=== PATIENT | male | born 1985 | race Caucasian/White ===

== ENCOUNTER 2018-05-29 09:07 | Inpatient (IN) ==
[2018-05-29] MEDS ORDERED: ZOFRAN 4 MG/2 ML IVP STA (09:28)
--- NOTE | 2018-05-29 09:28 | ED.PDOC ---
General ED Provider: Dr. BELLA BRUNSON Chief Complaint: Nausea/Vomiting Stated Complaint: States onset of symptoms last evening after eatting dinner downtown [place] at [facility]. States had a Steak, baked potatoe, Yesterday at noon Has [place] in [place]. Had Diarrhea initially with multiple episodes all night followed by onset of nausea and vomiting this morning. Called 911 [place] assistance at [facility]. Relatively asymptomatic upon arrival however had recurrent wretching and vomiting necessitating administering additional antiemetic. Time Seen by Physician: 09:12 Mode of Arrival: Walk-In Information Source: Patient Exam Limitations: No limitations Nursing and Triage Documentation Reviewed and Agree: Yes Does patient meet sepsis criteria?: No System Inflammatory Response Syndrome: Not Applicable Sepsis Protocol: For patient's 13 years and over: Temp is 96.8 and below OR 101 and greater Pulse >90 BPM Resp >20/minute Acutely Altered Mental Status Are patient's symptoms suggestive of a new infection, such as: -Pneumonia -Skin, Soft Tissue -Endocarditis -UTI -Bone, Joint Infection -Implantable Device -Acute Abdominal Infection -Wound Infection -Meningitis -Blood Stream Catheter Infection -Unknown GI Complaint Exam - Vomiting/Diarrhea Complaint/Exam Onset/Duration: 8 hours Symptoms Are: Still present Episodes of Vomiting over last 24 Hours: 4 Episodes of Diarrhea Over Last 24 Hours: 6 Initial Severity: Severe Current Severity: Severe Character of Vomiting: Reports: Bilious, Retching Character of Diarrhea: Reports: Watery Aggravating: Reports: Position, Movement Alleviating: Reports: None Associated Signs and Symptoms: Reports: Dizziness, Light-headedness, Cramping ( back pain) Last Oral Intake: Last PM Last Bowel Movement: [place] this AM Related Surgical History: Reports: None Abdominal Findings: Absent: Rebound tenderness, Peritoneal signs, McBurney's Point tender, CVA Tenderness Differential Diagnoses: Dehydration, Viral Gastroenteritis, Bacterial Gastroenteritis Review of Systems - Review Of Systems Constitutional: Reports: No symptoms Eyes: Reports: No symptoms Ears, Nose, Mouth, Throat: Reports: No symptoms Respiratory: Reports: No symptoms Cardiac: Reports: No symptoms GI: Reports: No symptoms, Diarrhea, Nausea, Poor fluid intake, Vomiting : Reports: No symptoms Musculoskeletal: Reports: No symptoms Skin: Reports: No symptoms Neurological: Reports: No symptoms Endocrine: Reports: No symptoms Hematologic/Lymphatic: Reports: No symptoms All Other Systems: Reviewed and Negative Past Medical History - Past Medical History Endocrine: Reports: DM 2, Dyslipidemia Cardiovascular: Reports: None Respiratory: Reports: None Hematological: Reports: None Gastrointestinal: Reports: None Genitourinary: Reports: None Neuro/Psych: Reports: None Musculoskeletal: Reports: None Cancer: Reports: None - Surgical History General Surgical History: Reports: None - Family History Family History: Reports: Unknown - Social History Smoking Status: Never smoker Hx Substance Use: No Alcohol Screening: Occasionally Physical Exam - Physical Exam Appearance: Ill-appearing, Well-nourished Ill-appearing: Moderate Pain Distress: Mild Eyes: CECE, EOMI, Conjunctiva clear ENT: Ears normal, Nose normal, Oropharynx normal Respiratory: Airway patent, Breath sounds clear, Breath sounds equal, Respirations nonlabored Cardiovascular: RRR, Pulses normal, No rub, No murmur GI/: Soft, No masses, No Organomegaly, Tender, Bowel sounds hypoactive Musculoskeletal: Normal strength, ROM intact, No edema, No calf tenderness Skin: Warm, Dry, Normal color Neurological: Sensation intact, Motor intact, Reflexes intact, Cranial nerves intact, Alert, Oriented Psychiatric: Affect appropriate, Mood appropriate Interpretation - Radiology Interpretation Radiology Interpretation By: Radiologist Exam Interpreted: CT Scan (acute enteritis) Re-Evaluation - Re-Evaluation Time of Re-Evaluation: 12:00 Status: Improved (slightly- ) Vital Signs Stable: Yes Pain Level: 5/10 Appearance: NAD Lungs: Clear Skin: Warm and Dry Neuro: Alert and Oriented X3 CV: Other (abdomen soft with tenderness -minimal guarding-no rebound) Physician Notification - Case Discussed Physician Notified: Dr Lambert Time of Notification: 12:15 (agrees to admisssion ) Critical Care Note - Critical Care Note Total Time (mins): 30 Course - Course Hematology/Chemistry: 05/29/18 09:43 05/29/18 11:52 Orders, Labs, Meds: Lab Review 05/29/18 05/29/18 05/29/18 09:43 09:43 09:50 WBC 8.74 RBC 6.15 H Hgb 16.7 Hct 49.5 MCV 80.5 MCH 27.2 MCHC 33.7 RDW Coeff of Oliver 12.8 Plt Count 189 Immature Gran % (Auto) 0.5 Neut % (Auto) 80.1 Lymph % (Auto) 10.1 [place] % (Auto) 8.6 Eos % (Auto) 0.2 Baso % (Auto) 0.5 Immature Gran # (Auto) 0.0 Neut # (Auto) 7.0 H Lymph # (Auto) 0.9 [place] # (Auto) 0.8 Eos # (Auto) 0.0 Baso # (Auto) 0.0 Sodium 138 Potassium 4.4 Chloride 106 Carbon Dioxide 18 L Anion Gap 18.4 BUN 20 H Creatinine 1.01 Estimated GFR (MDRD) 85.00 BUN/Creatinine Ratio 19.80 Glucose 166 H Calcium 9.8 Total Bilirubin 0.9 AST 74 H ALT 157 H Alkaline Phosphatase 70 Total Protein 8.1 Albumin 4.4 Globulin 3.7 Albumin/Globulin Ratio 1.19 Amylase 65 Lipase 26 Urine Color Yellow Urine Clarity Clear Urine pH 5.5 Ur Specific [place] 1.020 Urine Protein 1+ Urine Glucose (UA) 2+ Urine Ketones 4+ Urine Blood Trace-intact Urine Nitrite Negative Urine Bilirubin 1+ Urine Urobilinogen 0.2 Ur Leukocyte Esterase Negative Urine Microscopic RBC 0-2 Ur Squamous Epith Cells 0-2 05/29/18 11:52 WBC RBC Hgb Hct MCV MCH MCHC RDW Coeff of Oliver Plt Count Immature Gran % (Auto) Neut % (Auto) Lymph % (Auto) [place] % (Auto) Eos % (Auto) Baso % (Auto) Immature Gran # (Auto) Neut # (Auto) Lymph # (Auto) [place] # (Auto) Eos # (Auto) Baso # (Auto) Sodium 137 Potassium 4.3 Chloride 110 H Carbon Dioxide 17 L Anion Gap 14.3 BUN 21 H Creatinine 0.92 Estimated GFR (MDRD) 94.00 BUN/Creatinine Ratio 22.82 Glucose 168 H Calcium 8.6 Total Bilirubin AST ALT Alkaline Phosphatase Total Protein Albumin Globulin Albumin/Globulin Ratio Amylase Lipase Urine Color Urine Clarity Urine pH Ur Specific [place] Urine Protein Urine Glucose (UA) Urine Ketones Urine Blood Urine Nitrite Urine Bilirubin Urine Urobilinogen Ur Leukocyte Esterase Urine Microscopic RBC Ur Squamous Epith Cells Orders Category Date Time Status NPO REMINDER: IMAGING ONCE CARE 05/29/18 11:11 Completed AMYLASE Stat LAB 05/29/18 09:43 Completed BMP [BASIC METABOLIC PANEL] Stat LAB 05/29/18 11:52 Completed CBC W/ AUTO DIFF Stat LAB 05/29/18 09:43 Completed CMP [COMPREHENSIVE METABOLIC PANEL] Stat LAB 05/29/18 09:43 Completed HEPATITIS PANEL, ACUTE Stat LAB 05/29/18 09:43 Received LIPASE Stat LAB 05/29/18 09:43 Completed OCCULT BLOOD, STOOL Stat LAB 05/29/18 09:47 Uncollected OVA AND PARASITES EXAM Stat LAB 05/29/18 09:47 Uncollected STOOL CULTURE Stat LAB 05/29/18 Ordered URINALYSIS C & S IF INDICATED Stat LAB 05/29/18 09:50 Completed Famotidine Inj [Pepcid] MEDS 05/29/18 09:42 Discontinued 20 mg IVP ONCE STA Hydromorphone HCl [Dilaudid 0.5 mg/0.5 ml Syringe] MEDS 05/29/18 09:43 Discontinued 0.5 mg IVP ONCE STA Hydromorphone HCl [Dilaudid 2 mg/ml Sdv] MEDS 05/29/18 10:52 Discontinued 2 mg IVP ONCE STA Hydromorphone HCl/Pf [Dilaudid 2 mg/ml Syringe] MEDS 05/29/18 10:55 Discontinued 2 mg .ROUTE .STK-MED ONE Ondansetron HCl/Pf [Zofran 4 mg/2 ml] MEDS 05/29/18 09:28 Discontinued 4 mg IVP ONCE STA Promethazine HCl [Phenergan 25 mg/ml Vial] MEDS 05/29/18 10:00 Discontinued 25 mg .ROUTE .STK-MED ONE Promethazine HCl [Phenergan 25 mg/ml Vial] 25 mg MEDS 05/29/18 09:50 Discontinued 0.9 % Sodium Chloride [Sodium Chloride] 50 ml IV ONCE Sodium Chloride 0.9% [Sodium Chloride] 1,000 ml MEDS 05/29/18 11:14 Active IV BOLUS Sodium Chloride 0.9% [Sodium Chloride] 1,000 ml MEDS 05/29/18 11:[address] ABDOMEN/PELVIS W/WO CONTRAS Stat RADS 05/29/18 11:11 Completed Medications Generic Name Dose Route Start Last Admin Trade Name Freq PRN Reason Stop Dose Admin Sodium Chloride 1,000 mls @ 500 mls/hr 05/29/18 11:14 05/29/18 10:30 Sodium Chloride IV 05/29/18 13:13 500 mls/hr BOLUS STA Administration Sodium Chloride 1,000 mls @ 1,000 mls/hr 05/29/18 11:29 05/29/18 11:41 Sodium Chloride IV 05/29/18 12:28 1,000 mls/hr BOLUS STA Administration Discontinued Medications Generic Name Dose Route Start Last Admin Trade Name [place] PRN Reason Stop Dose Admin Famotidine 20 mg 05/29/18 09:42 05/29/18 10:00 Pepcid IVP 05/29/18 09:43 20 mg ONCE STA Administration Hydromorphone HCl 0.5 mg 05/29/18 09:43 05/29/18 10:00 Dilaudid 0.5 Mg/0.5 Ml Syringe IVP 05/29/18 09:44 0.5 mg ONCE STA Administration Hydromorphone HCl 2 mg 05/29/18 10:52 05/29/18 10:58 Dilaudid 2 Mg/Ml Sdv IVP 05/29/18 10:53 2 mg ONCE STA Administration Promethazine HCl 25 mg/ Sodium 51 mls @ 75 mls/hr 05/29/18 09:50 05/29/18 10: 04 Chloride IV 05/29/18 10:30 75 mls/hr ONCE STA Administration Ondansetron HCl 4 mg 05/29/18 09:28 05/29/18 09:38 Zofran 4 Mg/2 Ml IVP 05/29/18 09:29 4 mg ONCE STA Administration Vital Signs: Temp Pulse Resp BP Pulse Ox 05/29/18 09:08 97.3 F L 78 20 113/81 100 Departure - Departure Time of Disposition: 12:15 Disposition: PLACED OBSERVATION Discharge Problem: Acute gastroenteritis, Dehydration Condition: Fair Pt referred to PMD for follow-up: Yes (post hospitalization ) IPMP verified?: No Additional Instructions: Recommended Hospitalization for continued hydration and pain control Monitor BS readings Patient agrees Dr Lambert -Hospitalist highway traffic control technician agrees Allergies/Adverse Reactions: Allergies No Known Allergies Allergy (Unverified 05/29/18 09:15) Home Medications: Ambulatory Orders Atorvastatin Calcium [Lipitor] 10 mg PO BEDTIME 05/29/18 Dapagliflozin Propanediol [Farxiga] 5 mg PO DAILY 05/29/18 Montelukast Sodium [Singulair] 10 mg PO BEDTIME 05/29/18 [place]-3 Fatty Acids/Fish Oil [Fish Oil 1,000 mg Capsule] 1 each PO DAILY Sitagliptin Phos/Metformin HCl [Janumet 50-500 mg Tablet] 1 each PO DAILY Disposition Discussed With: Patient, Other (Dr Lambert) Additional Comments Additional Comments: 1050 Hrs. Patient remains relatively uncomfortable with c/ o severe upper back pain attributable to his severe wretching and recurrent vomiting. Nausea improved but can not get comfortable with his pain. Moderate tenderness to palpation in Lt>Rt Mid thoracic paraspinous musculature./spasm. Attemtpting to obtain imaging but can not get on to transfer wheelchair. Additional tx ordered.
[2018-05-29] MEDS ORDERED: PEPCID IVP STA (09:42)
[2018-05-29] MEDS ORDERED: DILAUDID 0.5 MG/0.5 ML SYRINGE IVP STA (09:43)
[2018-05-29] MEDS ORDERED: PHENERGAN 25 MG/ML VIAL 25 MG in SODIUM CHLORIDE 50 ML IV STA (09:50)
[2018-05-29] MEDS ORDERED: PHENERGAN 25 MG/ML VIAL ONE (10:00)
[2018-05-29] MEDS ORDERED: DILAUDID 2 MG/ML SDV IVP STA (10:52)
[2018-05-29] MEDS ORDERED: DILAUDID 2 MG/ML SYRINGE ONE (10:55)
[2018-05-29] MEDS ORDERED: SODIUM CHLORIDE 1,000 ML IV STA ×2 (11:14→11:29)
--- NOTE | 2018-05-29 12:11 | CT ---
EXAM: CT abdomen with and without contrast. CT pelvis with and without contrast. HISTORY: Abdominal pain, nausea, vomiting, diarrhea. COMPARISON: None available. TECHNIQUE: Multiple axial images of the abdomen and pelvis were obtained prior to and following intr avenous administration of 75 mL of Omnipaque 350, low osmolar. Images reformatted in the sagittal an d coronal plane. FINDINGS: The lung bases are clear. No acute osseous abnormality identified. The liver is mildly enlarged diffusely low density. The gallbladder, pancreas, spleen, adrenal gland s are unremarkable. Kidneys appear normal. There is mild fluid distension of multiple small bowel loops without transition point. There is mild fluid distension of the colon without bowel wall thickening. Appendix not seen. No free fluid, pauline e air or lymphadenopathy identified. There is mild mesenteric edema, small mesenteric lymph nodes an d prominence of the mesenteric vasculature. Small fat-containing umbilical hernia is present. Urina ry bladder appears normal. IMPRESSION: 1. Findings consistent with enterocolitis. 2. Hepatomegaly with fatty infiltration.
[2018-05-29 14:22] VITALS: BMI 30.7
[2018-05-29] MEDS ORDERED: ZOFRAN 4 MG/2 ML IVP PRN (14:41)
[2018-05-29] MEDS ORDERED: LOMOTIL PO PRN (14:42)
[2018-05-29] MEDS ORDERED: SODIUM CHLORIDE 250 ML IV ONE (14:44)
[2018-05-29] MEDS ORDERED: VISTARIL INJ IM PRN (14:48)
[2018-05-29] MEDS ORDERED: TYLENOL PO PRN (14:48)
[2018-05-29] MEDS ORDERED: PROTONIX IV ONE (19:41)
[2018-05-29] MEDS ORDERED: PROTONIX PO SCH (20:00)
[2018-05-29] MEDS ORDERED: SODIUM CHLORIDE 1,000 ML IV SCH (23:00)
[2018-05-29] MEDS: SODIUM CHLORIDE 1,000 ML IV SCH (23:09)
[2018-05-30] MEDS: PROTONIX PO SCH ×2 (07:56→16:45)
[2018-05-30] MEDS ORDERED: HUMULIN R SUBCUT PRN (08:29)
[2018-05-30] MEDS: SODIUM CHLORIDE 1,000 ML IV SCH ×4 (08:52→19:31)
[2018-05-30] MEDS: ZITHROMAX PO SCH (08:52)
[2018-05-30] MEDS ORDERED: SODIUM CHLORIDE 1,000 ML IV SCH (09:00)
--- NOTE | 2018-05-30 09:11 | PCM.PROG ---
Attending Provider: ATTENDING PROVIDER: [facility] This patient is seen with Neema Camejo, Nurse Practitioner. DATE OF SERVICE: 05/30/18 SUBJECTIVE: This 32 year old WHITE/ M was hospitalized 05/29/18. The patient is alert, lying in bed. Stool culture is positive for Campylobacter. He reports he did eat chicken at a [place] restaurant prior to becoming sick, still with blood in stool, no vomiting. REVIEW OF SYSTEMS: CONSTITUTIONAL: Weakness. No night sweats. No malaise, lethargy. No fever or chills. HEENT: Eyes: No visual changes. No eye pain. No eye discharge. ENT: No runny nose. No epistaxis. No sinus pain. No odynophagia. No congestion. RESPIRATORY: No cough, no congestion. No hemoptysis. No shortness of breath. CARDIOVASCULAR: No angina symptoms. No CHF symptoms. No atypical chest pain for CAD. No palpitations. No orthopnea. GASTROINTESTINAL: Positive for diarrhea with blood in stool. No abdominal pain. No nausea or vomiting. No constipation. No hematemesis. GENITOURINARY: No urgency. No frequency. No dysuria. No hematuria. No obstructive symptoms. No discharge. No pain. No significant abnormal bleeding. MUSCULOSKELETAL: No musculoskeletal pain; no joint swelling. NEUROLOGICAL: Awake, alert, oriented to time, place and person. No headache. No neck pain. No syncope. No seizures. No dizziness. PSYCHIATRIC: Not anxious. No depression. No suicidal thoughts. No homicidal thoughts. SKIN: No rash. No lesions. No wounds. ENDOCRINE: No unexplained weight loss. No weight gain. HEMATOLOGIC/LYMPHATIC: No anemia. No purpura. No petechiae. No prolonged or excessive bleeding. No palpable lymph nodes. PHYSICAL EXAMINATION: GENERAL: The patient is awake, alert and oriented, lying in bed in no distress. VITAL SIGNS: Temperature 97.4 F, Pulse 76, Respiratory Rate 20, BP 102/68, Pulse Ox 99% HEENT: Head normocephalic, atraumatic. Eyes: Extraocular muscles are intact. Pupils are equal, round and reactive to light and accommodation. Ears: No lesions. Nose appeared normal. Throat: No exudate or erythema. NECK: Supple. No JVD, no carotid bruit. No lymphadenopathy or thyromegaly. LUNGS: Clear to auscultation. Percussion note normal. Chest symmetrical. HEART: S1, S2, no S3. No murmurs. No cyanosis or clubbing. No ascites. Pulses: Dorsalis pedis and posterior tibial pulses +1 to +2 both sides. ABDOMEN: Soft. Non-tender. Bowel sounds active. No CVA tenderness. No mass felt. EXTREMITIES: No edema. Full range of motion of all extremities, equal. NEUROLOGIC: No focal deficit. Cranial nerves II through XII are grossly intact. No headache, no double vision or headache. SKIN: Not dry. Intact. Turgor-normal. LYMPHATIC: No palpable lymph nodes/no lymphedema. MUSCULOSKELETAL: Normal joints with no swelling. Muscle tone is normal. LAB REVIEW: 05/30/18 04:55 05/30/18 04:55 05/30/18 04:55: Sodium 139, Potassium 3.8, Chloride 110 H, Carbon Dioxide 23, Anion Gap 9.8, BUN 16, Creatinine 0.86, Estimated GFR (MDRD) 102.00, BUN/ Creatinine Ratio 18.60, Glucose 125 H, Calcium 8.3, Total Bilirubin 1.0, AST 39 H D, ALT 105 H D, Alkaline Phosphatase 37 L D, Total Protein 5.8 L, Albumin 3.2 L, Globulin 2.6, Albumin/Globulin Ratio 1.23 05/30/18 04:55: WBC 6.34, RBC 4.76, Hgb 12.9 L D, Hct 39.1 L D, MCV 82.1, MCH 27.1, MCHC 33.0, RDW Coeff of Oliver 13.0, Plt Count 170, Immature Gran % (Auto) 0.3, Neut % (Auto) 51.5, Lymph % (Auto) 33.9, [place] % (Auto) 12.3 H, Eos % (Auto ) 1.7, Baso % (Auto) 0.3, Immature Gran # (Auto) 0.0, Neut # (Auto) 3.3, Lymph # (Auto) 2.2, [place] # (Auto) 0.8, Eos # (Auto) 0.1, Baso # (Auto) 0.0 05/30/18 03:55: Puncture Site Rb, O2 Saturation 98.0, ABG pH 7.385, ABG pCO2 34.3 L, ABG pO2 107.0 H, ABG HCO3 20.6 L, ABG Total CO2 22, ABG Base Excess -4 L , Cuong Test +, FiO2 % 21.0 05/29/18 20:00: Urine Color Yellow, Urine Clarity Clear, Urine pH 5.5, Ur Specific [place] >=1.030, Urine Protein 1+, Urine Glucose (UA) 2+, Urine Ketones Negative, Urine Blood Negative, Urine Nitrite Negative, Urine Bilirubin Negative, Urine Urobilinogen 0.2, Ur Leukocyte Esterase Negative, Urine Microscopic WBC 2-5, Ur Squamous Epith Cells 2-5, Urine Mucus 2+ 05/29/18 18:00: Stl Occult Blood (IFOB) Positive, Stool Occult Blood #2 No specimen received, Stool Occult Blood #3 No specimen received 05/29/18 11:52: Sodium 137, Potassium 4.3, Chloride 110 H, Carbon Dioxide 17 L, Anion Gap 14.3, BUN 21 H, Creatinine 0.92, Estimated GFR (MDRD) 94.00, BUN/ Creatinine Ratio 22.82, Glucose 168 H, Calcium 8.6 05/29/18 09:50: Urine Color Yellow, Urine Clarity Clear, Urine pH 5.5, Ur Specific [place] 1.020, Urine Protein 1+, Urine Glucose (UA) 2+, Urine Ketones 4 +, Urine Blood Trace-intact, Urine Nitrite Negative, Urine Bilirubin 1+, Urine Urobilinogen 0.2, Ur Leukocyte Esterase Negative, Urine Microscopic RBC 0-2, Ur Squamous Epith Cells 0-2 05/29/18 09:43: Sodium 138, Potassium 4.4, Chloride 106, Carbon Dioxide 18 L, Anion Gap 18.4, BUN 20 H, Creatinine 1.01, Estimated GFR (MDRD) 85.00, BUN/ Creatinine Ratio 19.80, Glucose 166 H, Calcium 9.8, Total Bilirubin 0.9, AST 74 H, ALT 157 H, Alkaline Phosphatase 70, Total Protein 8.1, Albumin 4.4, Globulin 3.7, Albumin/Globulin Ratio 1.19, Amylase 65, Lipase 26 05/29/18 09:43: WBC 8.74, RBC 6.15 H, Hgb 16.7, Hct 49.5, MCV 80.5, MCH 27.2, MCHC 33.7, RDW Coeff of [place] 12.8, Plt Count 189, Immature Gran % (Auto) 0.5, Neut % (Auto) 80.1, Lymph % (Auto) 10.1, [place] % (Auto) 8.6, Eos % (Auto) 0.2, Baso % (Auto) 0.5, Immature Gran # (Auto) 0.0, Neut # (Auto) 7.0 H, Lymph # ( Auto) 0.9, [place] # (Auto) 0.8, Eos # (Auto) 0.0, Baso # (Auto) 0.0 ASSESSMENT: 1. POSITIVE FOR CAMPYLOBACTER 2. ACUTE GASTROENTERITIS 3. DEHYDRATION 4. HYPOTENSION 5. DIABETES MELLITUS TYPE 2 PLAN: 1. Contact precautions 2. Sliding scale 3. D/C Lomotil 4. Continue IV fluids 5. Zithromax 500 daily p.o. Plan and coordination of the patient's care discussed in the presence of Machine Bunch Maker and nurse. CONDITION: STABLE SCRIBED BY: FABIO LANCE Land Leveler scribed while in presence of service performed by Dr. Rothman/Neema Camejo APRN on 05/30/18 ([id number])
[2018-05-31] MEDS: SODIUM CHLORIDE 1,000 ML IV SCH (05:52)
[2018-05-31] MEDS: PROTONIX PO SCH (06:18)
[2018-05-31 06:29] VITALS: BP 104/65; TEMP 97.4
[2018-05-31] MEDS: ZITHROMAX PO SCH (09:18)
--- NOTE | 2018-06-02 07:49 | DS ---
DATE OF SERVICE: 05/31/18 FINAL DIAGNOSIS: 1. Gastroenteritis was colitis etiology Campylobacter DISCHARGE INSTRUCTIONS: The patient is being discharged home. The patient is instructed to rest and increase fluids. The patient is from [place] and going to go back home. The patient is advised to see PCP in couple of days. NEW PRESCRIPTIONS: Zithromax 500mg daily for 2 days. The patient is already given two days of 500mg in the hospital. DIET INSTRUCTIONS: As tolerated ACTIVITY: Rest SMOKING: Never Smoker DISEASE SPECIFIC EDUCATION: Gastroenteritis Antibiotics HOSPITAL COURSE: Santosh was hospitalized two days ago with vomiting, nausea and diarrhea. The patient was treated with IV fluids. Symptomatically he was treated with Lomotil and Zofran. The patient's condition improved. The stool grew Campylobacter. He was put on Zithromax. 24 hours prior to discharge the patient had no abdominal pain and his appetite had improved. He had practically normal bowel movement on the day of discharge. The patient is up and about feeling good. His electrolytes were normal. Condition at the time of discharge is stable. TIME SPENT: More than 60 minutes. [facility]
--- NOTE | 2018-06-02 07:50 | PN ---
05/29/18: Level 5 05/30/18: Intermediate 05/31/18: D as in discharge MTDD
--- NOTE | 2018-06-02 12:53 | PN ---
DATE OF SERVICE: 05/29/18 SUBJECTIVE: The patient was seen in the hospital in Room 108. The patient was hospitalized with acute gastroenteritis. No history of diabetes, hypertension or coronary artery disease. PHYSICAL EXAMINATION: HEENT: Head normocephalic, atraumatic. Eyes: Extraocular muscles are intact. Pupils are equal, round and reactive to light and accommodation. Ears: No lesions. Nose appeared normal. Throat: No exudate or erythema. NECK: Supple. No JVD, no carotid bruit. No lymphadenopathy or thyromegaly. LUNGS: Clear to auscultation. Percussion note normal. Chest symmetrical. HEART: S1, S2, no S3. No murmurs. No cyanosis or clubbing. No ascites. Pulses: Dorsalis pedis and posterior tibial pulses +1 to +2 both sides. ABDOMEN: Soft. Mild abdominal tenderness. Bowel sounds active. No CVA tenderness. No mass felt. EXTREMITIES: No edema. Full range of motion of all extremities, equal. NEUROLOGIC: No focal deficit. Cranial nerves II through XII are grossly intact. No headache, no double vision or headache. SKIN: Not dry. Intact. Turgor - normal. LYMPHATIC: No palpable lymph nodes/no lymphedema. MUSCULOSKELETAL: Normal joints with no swelling. Muscle tone is normal. ASSESSMENT: 1. ACUTE GASTROENTERITIS, SEVERE WITH MILDLY BLOODY STOOLS PLAN: 1. Admit with IV fluids 2. Mild hypotension at night was given IV fluids 3. Stool sensitivity pending 4. Will treat with Lomotil, Zofran CONDITION: Stable TIME SPENT: More than 30 minutes. Plan and coordination of the patient's care discussed in the presence of nurse. VERONICA
--- NOTE | 2018-06-02 13:02 | PN ---
DATE OF SERVICE: 05/30/18 SUBJECTIVE: The patient's condition has improved. He still has mild diarrhea but no nausea or vomiting. He had a sandwich to eat yesterday. He is hungry today. He still has mild abdominal discomfort at times, Campylobacter grew. The patient is on Zithromax. He is on IV fluids. Blood pressure systolic more than 100. REVIEW OF SYSTEMS: CONSTITUTIONAL: No night sweats. No fatigue, malaise, lethargy. No fever or chills. HEENT: Eyes: No visual changes. No eye pain. No eye discharge. ENT: No runny nose. No epistaxis. No sinus pain. No sore throat. No odynophagia. No congestion. RESPIRATORY: No cough, no congestion. No hemoptysis. No shortness of breath. CARDIOVASCULAR: No angina symptoms. No CHF symptoms. No atypical chest pain for CAD. No palpitations. No orthopnea. GASTROINTESTINAL: Mild abdominal discomfort. No nausea or vomiting. Mild diarrhea. No hematemesis. No hematochezia. GENITOURINARY: No urgency. No frequency. No dysuria. No hematuria. No obstructive symptoms. No discharge. No pain. No significant abnormal bleeding. MUSCULOSKELETAL: No musculoskeletal pain; no joint swelling. NEUROLOGICAL: No headache. No neck pain. No syncope. No seizures. No dizziness. PSYCHIATRIC: Not anxious. No depression. No suicidal thoughts. No homicidal thoughts. SKIN: No rash. No lesions. No wounds. ENDOCRINE: No unexplained weight loss. No weight gain. HEMATOLOGIC/LYMPHATIC: No anemia. No purpura. No petechiae. No prolonged or excessive bleeding. No palpable lymph nodes. PHYSICAL EXAMINATION: HEENT: Head normocephalic, atraumatic. Eyes: Extraocular muscles are intact. Pupils are equal, round and reactive to light and accommodation. Ears: No lesions. Nose appeared normal. Throat: No exudate or erythema. NECK: Supple. No JVD, no carotid bruit. No lymphadenopathy or thyromegaly. LUNGS: Clear to auscultation. Percussion note normal. Chest symmetrical. HEART: S1, S2, no S3. No murmurs. No cyanosis or clubbing. No ascites. Pulses: Dorsalis pedis and posterior tibial pulses +1 to +2 both sides. ABDOMEN: Soft. Nontender. Bowel sounds active. No CVA tenderness. No mass felt. EXTREMITIES: No edema. Full range of motion of all extremities, equal. NEUROLOGIC: No focal deficit. Cranial nerves II through XII are grossly intact. No headache, no double vision or headache. SKIN: Not dry. Intact. Turgor - normal. LYMPHATIC: No palpable lymph nodes/no lymphedema. MUSCULOSKELETAL: Normal joints with no swelling. Muscle tone is normal. CONDITION: Stable TIME SPENT: More than 30 minutes. The patient was seen and examined with the nurse practitioner. Plan and coordination of the patient's care discussed in the presence of nurse. VERONICA
--- NOTE | 2018-06-02 13:09 | PN ---
DATE OF SERVICE: 05/29/18 SUBJECTIVE: The patient was seen and examined on 05/29/18. He was hospitalized with hypokalemia. The patient was discharged from [facility] emergency room after his potassium was noted to be 2.4 and given supplements. The patient ended up here with complaint of weakness. The patient's potassium has been 2.4, has been given IV and p.o. potassium. He will be given 20 mEq potassium four times on 05/29/18 and IV potassium supplements to be given. The patient is noncompliant. His magnesium was low which is being supplemented. He also has ulcerative colitis/Crohn's disease. In the past has been seen by Dr. Sharma and Dr. Solitario. The patient has an appointment with transit police officer, [facility], likely Dr. Rivera. TIME SPENT: More than 30 minutes. Plan and coordination of the patient's care discussed in the presence of nurse. VERONICA
== END 2018-05-31 10:00 | disposition home or self-care (01) | DRG 373 ==
LOC: ED 09:07 → OBSVTOIN 12:41 → UNDOADMOB 12:41 → MEDSURG A 12:41
PROVIDERS: ADMIT Internal Medicine; ATTEND Internal Medicine
DX: A04.5 Campylobacter enteritis (principal); R19.7 Diarrhea, unspecified; R42 Dizziness and giddiness; R25.2 Cramp and spasm; E86.0 Dehydration; R10.9 Unspecified abdominal pain; K52.9 Noninfective gastroenteritis and colitis, unspecified; I95.9 Hypotension, unspecified; E11.9 Type 2 diabetes mellitus without complications
CPT/HCPCS: 36415; 80048; 80053; 80074; 81001; 82150; 82272; 82803; 82962; 83690; 85025; 87015; 87045; 87899; 93005; 93010; 96361; 96365; 96375; 96376; 99284